=== PATIENT | female | born 1930 | race African-American/Black ===

== ENCOUNTER 2018-03-27 15:20 | Inpatient (IN) | payer MEDICARE, MEDICAID ==
[~2018-03-27] VITALS: Ht 162.6 cm; Wt 97.5 kg
[2018-03-27 16:30] LABS: BASOPHILS % 0.7 % (0.0-2.0); EOSINOPHILS % 0.3 % (0.0-5.0); HEMATOCRIT. 24.8 % (36.0-48.0); LYMPHOCYTES % 10.7 % (20.0-50.0); MEAN CORPUSCULAR HEMOGLOBIN 27.1 pg (28.0-32.0); MEAN CORPUSCULAR VOLUME 83.4 fL (81.0-99.0); MEAN PLATELET VOLUME 9.7 fl (7.4-10.4); MONOCYTES % 8.7 % (2.0-8.0); NEUTROPHILS % 79.6 % (40.0-76.0); PLATELET 187 x1000/uL (130-400); RED BLOOD CELL COUNT 2.97 mill/uL (4.2-5.4); RED CELL DISTRIBUTION WIDTH 17.9 % (11.6-14.6)
[2018-03-27 16:36] LABS: CHLORIDE 112 mEq/L (98-107)
[2018-03-28] VITALS (7 sets, daily range): BP systolic 111–146; BP diastolic 47–94
[2018-03-28] MEDS ORDERED: IPRATROPIUM/ALBUTEROL 0.5-3(2.5)MG/3ML NEB HHN PRN (08:00)
[2018-03-28] MEDS: ACETAMINOPHEN 650MG/20.3ML UDC PO PRN (08:54)
[2018-03-28] MEDS ORDERED: ACETAMINOPHEN 325MG TABLET PO PRN (09:00)
[2018-03-28] MEDS ORDERED: IPRATROPIUM/ALBUTEROL 0.5-3(2.5)MG/3ML NEB INH PRN (09:00)
[2018-03-28] MEDS ORDERED: DEXTROSE 50% WATER 50ML SYRINGE IV PRN (11:30)
[2018-03-28] MEDS: BLOOD SUGAR DIAGNOSTIC STRIP TEST SCH ×3 (12:30→21:00)
[2018-03-28] MEDS: PANTOPRAZOLE SODIUM 40 MG/VIAL IV SCH (12:40)
[2018-03-28] MEDS: HYDROCORTISONE 20MG TABLET PO SCH ×2 (12:41→21:13)
[2018-03-28] MEDS: INSULIN LISPRO 100 UNITS/ML SUBCUT SCH ×3 (13:00→21:00)
[2018-03-28 14:08] LABS: TOTAL IRON BINDING CAPACITY 298 ug/dL (250-450)
[2018-03-28] MEDS: SILDENAFIL CITRATE 20MG TABLET PO SCH ×2 (14:35→22:47)
[2018-03-28 16:05] LABS: BG BASE EXCESS -6.5 mmol/L (-2.0-2.0); BG CARBOXYHEMOGLOBIN 0.4 % (0.5-1.5); BG DEOXYHEMOGLOBIN 1.7 % (0.0-5.0); BG FRACTION INSPIRED OXYGEN 40; BG HCO3 ACT 18.1 mmol/L (22.0-26.0); BG METHEMOGLOBIN 0.3 % (0.0-1.5); BG OXYGEN SATURATION 98.3 % (92.0-98.5); BG OXYHEMOGLOBIN 97.6 % (94.0-97.0); BG PCO2 32.2 mmHg (35.0-45.0); BG PH 7.367 (7.350-7.450); BG PO2 135.7 mmHg (75.0-100.0); BG PRESSURE SUPPORT 14; BG SAMPLE SITE LEFT BRACHIAL; BG TIDAL VOLUME(mL) 500 mL; BG TOTAL HEMOGLOBIN 8.4 g/dL (12.0-18.0); BG VENT MODE VENT - SIMV; BG VENT RATE 4 set
[2018-03-28] MEDS ORDERED: DEXT 5%/0.45% NACL 1000ML 1,000 ML IV SCH (17:00)
[2018-03-28 18:53] LABS: TOTAL IRON BINDING CAPACITY 329 ug/dL (250-450)
[2018-03-28 19:32] LABS: BASOPHILS % 0.9 % (0.0-2.0); EOSINOPHILS % 1.2 % (0.0-5.0); HEMATOCRIT. 25.3 % (36.0-48.0); LYMPHOCYTES % 15.5 % (20.0-50.0); MEAN CORPUSCULAR HEMOGLOBIN 27.3 pg (28.0-32.0); MEAN CORPUSCULAR VOLUME 85.8 fL (81.0-99.0); MEAN PLATELET VOLUME 9.7 fl (7.4-10.4); MONOCYTES % 11.1 % (2.0-8.0); NEUTROPHILS % 71.3 % (40.0-76.0); PLATELET 185 x1000/uL (130-400); RED BLOOD CELL COUNT 2.95 mill/uL (4.2-5.4); RED CELL DISTRIBUTION WIDTH 17.6 % (11.6-14.6)
[2018-03-28] MEDS ORDERED: TERB2.5T2 PEG (20:15)
[2018-03-28] MEDS ORDERED: LOSA50TA20 GT (20:15)
[2018-03-28] MEDS ORDERED: BISA10SU62 RC (20:15)
[2018-03-28] MEDS ORDERED: NITR0.4T49 SL (20:15)
[2018-03-28] MEDS ORDERED: FERR220S12 GT (20:15)
[2018-03-28] MEDS ORDERED: XALAO EACHEYE (20:15)
[2018-03-28] MEDS ORDERED: FURO40TA5 PEG (20:15)
[2018-03-28] MEDS ORDERED: POTA20TA82 PEG (20:15)
[2018-03-28] MEDS ORDERED: HYDR10TA14 PEG (20:15)
[2018-03-28] MEDS ORDERED: SIME180C47 PEG (20:15)
[2018-03-28] MEDS ORDERED: OMEP40CA34 PEG (20:15)
[2018-03-28] MEDS ORDERED: CARV12.545 PEG (20:15)
[2018-03-28] MEDS ORDERED: LINA5TAB PEG (20:15)
[2018-03-28] MEDS ORDERED: SILD20TA PEG (20:15)
[2018-03-28] MEDS ORDERED: SPIR25TA6 PEG (20:15)
[2018-03-28] MEDS ORDERED: MOM PEG (20:15)
[2018-03-28] MEDS ORDERED: ACET650S25 GT (20:15)
[2018-03-28] MEDS ORDERED: OMEG100016 PEG (20:15)
[2018-03-28] MEDS ORDERED: NA P230E RC (20:15)
[2018-03-28] MEDS ORDERED: HYDR20TA3 PEG (20:15)
[2018-03-28] MEDS ORDERED: LACT1CAP68 PEG (20:15)
[2018-03-28] MEDS ORDERED: MULT-230 PEG (20:15)
[2018-03-28] MEDS: IPRATROPIUM/ALBUTEROL 0.5-3(2.5)MG/3ML NEB HHN SCH (20:39)
[2018-03-28] MEDS: IRON SUCROSE COMPLEX 100 MG/5 ML ML IV SCH (22:46)
[2018-03-29] VITALS (12 sets, daily range): BP systolic 89–130; BP diastolic 45–74
[2018-03-29] MEDS: IPRATROPIUM/ALBUTEROL 0.5-3(2.5)MG/3ML NEB HHN SCH ×4 (02:10→20:04)
[2018-03-29] MEDS: SILDENAFIL CITRATE 20MG TABLET PO SCH ×3 (06:29→22:00)
[2018-03-29 07:40] LABS: BASOPHILS % 0.7 % (0.0-2.0); EOSINOPHILS % 1.1 % (0.0-5.0); HEMATOCRIT. 24.3 % (36.0-48.0); HEMOGLOBIN. 7.8 g/dL (12.0-16.0); LYMPHOCYTES % 18.6 % (20.0-50.0); MEAN CORPUSCULAR HEMOGLOBIN 27.5 pg (28.0-32.0); MEAN CORPUSCULAR VOLUME 85.5 fL (81.0-99.0); MEAN PLATELET VOLUME 9.6 fl (7.4-10.4); MONOCYTES % 12.8 % (2.0-8.0); NEUTROPHILS % 66.8 % (40.0-76.0); PLATELET 162 x1000/uL (130-400); RED BLOOD CELL COUNT 2.84 mill/uL (4.2-5.4); RED CELL DISTRIBUTION WIDTH 17.7 % (11.6-14.6)
[2018-03-29] MEDS: INSULIN LISPRO 100 UNITS/ML SUBCUT SCH ×4 (08:00→21:00)
[2018-03-29] MEDS: BLOOD SUGAR DIAGNOSTIC STRIP TEST SCH ×4 (08:24→21:00)
[2018-03-29] MEDS: HYDROCORTISONE 20MG TABLET PO SCH ×2 (08:29→20:43)
[2018-03-29] MEDS: PANTOPRAZOLE SODIUM 40 MG/VIAL IV SCH (08:30)
[2018-03-29] MEDS ORDERED: SODIUM CHLORIDE 0.9% 500 ML IV NR (17:45)
[2018-03-29 19:36] LABS: HEMATOCRIT 23.7 % (36.0-48.0); HEMOGLOBIN 7.6 g/dL (12.0-16.0); MEAN CORPUSCULAR HEMOGLOBIN 27.7 pg (28.0-32.0); MEAN CORPUSCULAR VOLUME 86.4 fL (81.0-99.0); PLATELET 162 x1000/uL (130-400); RED BLOOD CELL COUNT 2.74 mill/uL (4.2-5.4); RED CELL DISTRIBUTION WIDTH 17.3 % (11.6-14.6)
[2018-03-29] MEDS: IRON SUCROSE COMPLEX 100 MG/5 ML ML IV SCH (20:43)
[2018-03-30] VITALS (12 sets, daily range): BP systolic 92–132; BP diastolic 35–86
[2018-03-30] MEDS: IPRATROPIUM/ALBUTEROL 0.5-3(2.5)MG/3ML NEB HHN SCH ×4 (02:22→20:35)
[2018-03-30] MEDS: SILDENAFIL CITRATE 20MG TABLET PO SCH ×3 (06:00→22:00)
[2018-03-30] MEDS: BLOOD SUGAR DIAGNOSTIC STRIP TEST SCH ×4 (07:30→21:00)
[2018-03-30] MEDS: INSULIN LISPRO 100 UNITS/ML SUBCUT SCH ×4 (08:00→21:00)
[2018-03-30 08:53] LABS: BASOPHILS % 0.9 % (0.0-2.0); HEMATOCRIT. 24.4 % (36.0-48.0); HEMOGLOBIN. 7.7 g/dL (12.0-16.0); MEAN CORPUSCULAR HEMOGLOBIN 27.9 pg (28.0-32.0); MEAN CORPUSCULAR VOLUME 87.9 fL (81.0-99.0); MEAN PLATELET VOLUME 9.6 fl (7.4-10.4); MONOCYTES % 12.2 % (2.0-8.0); NEUTROPHILS % 62.9 % (40.0-76.0); PLATELET 160 x1000/uL (130-400); RED BLOOD CELL COUNT 2.77 mill/uL (4.2-5.4); RED CELL DISTRIBUTION WIDTH 17.6 % (11.6-14.6)
[2018-03-30] MEDS: HYDROCORTISONE 20MG TABLET PO SCH ×2 (09:00→22:07)
[2018-03-30] MEDS: PANTOPRAZOLE SODIUM 40 MG/VIAL IV SCH (09:26)
[2018-03-30] MEDS: DEXTROSE 5% WATER 1,000 ML IV SCH (12:45)
[2018-03-30] MEDS ORDERED: STERILE WATER FOR INJECTION 10ML VIAL ONE (15:47)
[2018-03-30] MEDS ORDERED: MIDAZOLAM HCL 5 MG/5 ML VIAL ONE (16:28)
[2018-03-30] MEDS ORDERED: SIMETHICONE 40 MG/0.6 ML 30ML ONE (16:28)
[2018-03-30] MEDS ORDERED: FENTANYL CITRATE/PF 50MCG/ML 2ML VIAL ONE (16:29)
[2018-03-30] MEDS ORDERED: MIDAZOLAM HCL 5 MG/5 ML VIAL IV PRN (16:49)
[2018-03-30] MEDS: IRON SUCROSE COMPLEX 100 MG/5 ML ML IV SCH (20:00)
[2018-03-30] MEDS: ACETAMINOPHEN 650MG/20.3ML UDC PO PRN (22:06)
[2018-03-31] VITALS (34 sets, daily range): BP systolic 69–152; BP diastolic 33–98
[2018-03-31] MEDS: IPRATROPIUM/ALBUTEROL 0.5-3(2.5)MG/3ML NEB HHN SCH ×4 (02:02→20:41)
[2018-03-31] MEDS ORDERED: MORPHINE SULFATE 4 MG/ML CPJ (NOT FOR IM USE) IV PRN (05:45)
[2018-03-31] MEDS ORDERED: MORPHINE SULFATE 4 MG/ML CPJ (NOT FOR IM USE) IV SCH (05:45)
[2018-03-31] MEDS ORDERED: MAGNESIUM/ALUMINUM HYDROXIDE/SIMETHICONE 30ML UDC PO NR (06:00)
[2018-03-31] MEDS ORDERED: MAGNESIUM/ALUMINUM HYDROXIDE/SIMETHICONE 30ML UDC PO PRN (06:00)
[2018-03-31 06:45] LABS: BASOPHILS % 0.6 % (0.0-2.0); EOSINOPHILS % 0.8 % (0.0-5.0); HEMATOCRIT. 25.1 % (36.0-48.0); LYMPHOCYTES % 11.2 % (20.0-50.0); MEAN CORPUSCULAR HEMOGLOBIN 27.9 pg (28.0-32.0); MEAN CORPUSCULAR VOLUME 87.4 fL (81.0-99.0); MEAN PLATELET VOLUME 9.6 fl (7.4-10.4); MONOCYTES % 11.8 % (2.0-8.0); NEUTROPHILS % 75.6 % (40.0-76.0); PLATELET 153 x1000/uL (130-400); RED BLOOD CELL COUNT 2.87 mill/uL (4.2-5.4); RED CELL DISTRIBUTION WIDTH 17.9 % (11.6-14.6)
[2018-03-31] MEDS: SILDENAFIL CITRATE 20MG TABLET PO SCH ×3 (06:48→21:34)
[2018-03-31] MEDS: BLOOD SUGAR DIAGNOSTIC STRIP TEST SCH ×4 (07:02→21:34)
[2018-03-31] MEDS: INSULIN LISPRO 100 UNITS/ML SUBCUT SCH ×4 (07:50→21:00)
[2018-03-31] MEDS: DEXTROSE 5% WATER 1,000 ML IV SCH (08:04)
[2018-03-31] MEDS: PANTOPRAZOLE SODIUM 40 MG/VIAL IV SCH (09:15)
[2018-03-31] MEDS: HYDROCORTISONE 20MG TABLET PO SCH ×2 (09:15→21:34)
[2018-04-01] VITALS (14 sets, daily range): BP systolic 83–128; BP diastolic 23–73
[2018-04-01] MEDS: IPRATROPIUM/ALBUTEROL 0.5-3(2.5)MG/3ML NEB HHN SCH ×4 (04:03→21:13)
[2018-04-01] MEDS: SILDENAFIL CITRATE 20MG TABLET PO SCH ×3 (06:00→21:39)
[2018-04-01 06:48] LABS: BASOPHILS % 0.6 % (0.0-2.0); EOSINOPHILS % 1.5 % (0.0-5.0); HEMATOCRIT. 21.9 % (36.0-48.0); HEMOGLOBIN. 7.1 g/dL (12.0-16.0); LYMPHOCYTES % 9.4 % (20.0-50.0); MEAN CORPUSCULAR HEMOGLOBIN 27.9 pg (28.0-32.0); MEAN CORPUSCULAR VOLUME 86.4 fL (81.0-99.0); MEAN PLATELET VOLUME 9.5 fl (7.4-10.4); MONOCYTES % 8.7 % (2.0-8.0); NEUTROPHILS % 79.8 % (40.0-76.0); PLATELET 144 x1000/uL (130-400); RED BLOOD CELL COUNT 2.53 mill/uL (4.2-5.4)
[2018-04-01 06:54] LABS: CHLORIDE 114 mEq/L (98-107)
[2018-04-01] MEDS: BLOOD SUGAR DIAGNOSTIC STRIP TEST SCH ×3 (07:53→17:27)
[2018-04-01] MEDS: INSULIN LISPRO 100 UNITS/ML SUBCUT SCH ×3 (07:53→17:27)
[2018-04-01] MEDS: PANTOPRAZOLE SODIUM 40 MG/VIAL IV SCH (08:55)
[2018-04-01] MEDS: HYDROCORTISONE 20MG TABLET PO SCH ×2 (08:55→21:39)
[2018-04-01] MEDS ORDERED: LIDOCAINE HCL 1% 20ML VIAL (Pyxis) INJ ONE (09:47)
[2018-04-01] MEDS: DOCUSATE SODIUM SUGAR FREE 100MG/10ML UDC NG SCH ×2 (13:01→17:47)
[2018-04-01] MEDS: FUROSEMIDE 40MG/4ML VIAL IVP SCH (13:01)
[2018-04-01] MEDS: ACETYLCYSTEINE 200MG/ML 20% VIAL 4ML INH SCH (16:37)
[2018-04-01 20:09] LABS: HEMATOCRIT 24.5 % (36.0-48.0); HEMOGLOBIN 7.7 g/dL (12.0-16.0); MEAN CORPUSCULAR VOLUME 88.7 fL (81.0-99.0); PLATELET 142 x1000/uL (130-400); RED BLOOD CELL COUNT 2.76 mill/uL (4.2-5.4); RED CELL DISTRIBUTION WIDTH 18.6 % (11.6-14.6)
[2018-04-01] MEDS: DEXTROSE 5% WATER 1,000 ML IV SCH (21:39)
[2018-04-02] VITALS (12 sets, daily range): BP systolic 84–117; BP diastolic 46–94
[2018-04-02] MEDS: IPRATROPIUM/ALBUTEROL 0.5-3(2.5)MG/3ML NEB HHN SCH ×7 (01:24→23:44)
[2018-04-02] MEDS: ACETYLCYSTEINE 200MG/ML 20% VIAL 4ML INH SCH ×4 (01:25→20:45)
[2018-04-02 05:23] LABS: HEMATOCRIT. 22.7 % (36.0-48.0); HEMOGLOBIN. 7.5 g/dL (12.0-16.0); MEAN CORPUSCULAR HEMOGLOBIN 28.2 pg (28.0-32.0); MEAN CORPUSCULAR VOLUME 85.8 fL (81.0-99.0); MEAN PLATELET VOLUME 9.5 fl (7.4-10.4); PLATELET 135 x1000/uL (130-400); RED BLOOD CELL COUNT 2.65 mill/uL (4.2-5.4); RED CELL DISTRIBUTION WIDTH 17.6 % (11.6-14.6)
[2018-04-02 05:53] LABS: CHLORIDE 110 mEq/L (98-107)
[2018-04-02] MEDS: SILDENAFIL CITRATE 20MG TABLET PO SCH ×3 (06:00→21:43)
[2018-04-02] MEDS: BLOOD SUGAR DIAGNOSTIC STRIP TEST SCH ×4 (06:00→17:13)
[2018-04-02] MEDS: INSULIN LISPRO 100 UNITS/ML SUBCUT SCH ×5 (08:00→23:52)
[2018-04-02] MEDS: DOCUSATE SODIUM SUGAR FREE 100MG/10ML UDC NG SCH ×2 (09:00→17:17)
[2018-04-02] MEDS: FUROSEMIDE 40MG/4ML VIAL IVP SCH (09:00)
[2018-04-02] MEDS: HYDROCORTISONE 20MG TABLET PO SCH ×2 (09:01→21:43)
[2018-04-02] MEDS: PANTOPRAZOLE SODIUM 40 MG/VIAL IV SCH (09:01)
[2018-04-02 11:55] LABS: PLATELET ESTIMATE NORMAL
[2018-04-02] MEDS: DEXTROSE 5% WATER 1,000 ML IV SCH (12:03)
[2018-04-02] MEDS ORDERED: ASPIRIN 81MG EC TABLET PO NR (15:30)
[2018-04-02] MEDS ORDERED: ASPIRIN 81MG TABLET GT NR (16:15)
[2018-04-03] VITALS (12 sets, daily range): BP systolic 88–154; BP diastolic 41–74
[2018-04-03] MEDS: ACETYLCYSTEINE 200MG/ML 20% VIAL 4ML INH SCH ×2 (00:45→09:10)
[2018-04-03] MEDS: IPRATROPIUM/ALBUTEROL 0.5-3(2.5)MG/3ML NEB HHN SCH ×5 (03:40→20:22)
[2018-04-03] MEDS: SILDENAFIL CITRATE 20MG TABLET PO SCH ×3 (06:00→22:00)
[2018-04-03 06:19] LABS: BASOPHILS % 0.5 % (0.0-2.0); EOSINOPHILS % 1.2 % (0.0-5.0); HEMATOCRIT. 22.9 % (36.0-48.0); HEMOGLOBIN. 7.4 g/dL (12.0-16.0); LYMPHOCYTES % 10.1 % (20.0-50.0); MEAN CORPUSCULAR HEMOGLOBIN 27.9 pg (28.0-32.0); MEAN CORPUSCULAR VOLUME 86.2 fL (81.0-99.0); MEAN PLATELET VOLUME 9.4 fl (7.4-10.4); MONOCYTES % 9.2 % (2.0-8.0); PLATELET 120 x1000/uL (130-400); RED BLOOD CELL COUNT 2.65 mill/uL (4.2-5.4); RED CELL DISTRIBUTION WIDTH 18.3 % (11.6-14.6)
[2018-04-03 06:32] LABS: CHLORIDE 109 mEq/L (98-107)
[2018-04-03] MEDS: INSULIN LISPRO 100 UNITS/ML SUBCUT SCH ×3 (06:40→17:51)
[2018-04-03] MEDS: BLOOD SUGAR DIAGNOSTIC STRIP TEST SCH ×4 (06:40→17:20)
[2018-04-03 06:41] LABS: CREATINE KINASE 86 IU/L (26-192)
[2018-04-03 06:43] LABS: CREATINE KINASE MB FRACTION 7.9 ng/mL (0.5-3.6)
[2018-04-03] MEDS: DOCUSATE SODIUM SUGAR FREE 100MG/10ML UDC NG SCH ×2 (08:43→17:25)
[2018-04-03] MEDS: HYDROCORTISONE 20MG TABLET PO SCH ×2 (08:43→22:08)
[2018-04-03] MEDS: PANTOPRAZOLE SODIUM 40 MG/VIAL IV SCH (08:43)
[2018-04-03] MEDS: FUROSEMIDE 40MG/4ML VIAL IVP SCH (08:44)
[2018-04-03] MEDS: DEXTROSE 5% WATER 1,000 ML IV SCH (13:20)
[2018-04-03] MEDS: ACETAMINOPHEN 650MG/20.3ML UDC PO PRN (17:25)
[2018-04-04] VITALS (17 sets, daily range): BP systolic 78–138; BP diastolic 47–91
[2018-04-04] MEDS: BLOOD SUGAR DIAGNOSTIC STRIP TEST SCH ×4 (00:29→17:57)
[2018-04-04] MEDS: INSULIN LISPRO 100 UNITS/ML SUBCUT SCH ×4 (00:29→18:31)
[2018-04-04] MEDS: ACETYLCYSTEINE 200MG/ML 20% VIAL 4ML INH SCH ×3 (00:45→15:43)
[2018-04-04] MEDS: IPRATROPIUM/ALBUTEROL 0.5-3(2.5)MG/3ML NEB HHN SCH ×6 (00:46→20:15)
[2018-04-04] MEDS: SILDENAFIL CITRATE 20MG TABLET PO SCH ×3 (06:00→22:00)
[2018-04-04 06:37] LABS: BASOPHILS % 0.7 % (0.0-2.0); EOSINOPHILS % 1.4 % (0.0-5.0); LYMPHOCYTES % 10.3 % (20.0-50.0); MEAN CORPUSCULAR HEMOGLOBIN 28.5 pg (28.0-32.0); MEAN PLATELET VOLUME 10.1 fl (7.4-10.4); MONOCYTES % 11.2 % (2.0-8.0); NEUTROPHILS % 76.4 % (40.0-76.0); PLATELET 119 x1000/uL (130-400); RED BLOOD CELL COUNT 2.46 mill/uL (4.2-5.4); RED CELL DISTRIBUTION WIDTH 18.4 % (11.6-14.6)
[2018-04-04 07:00] LABS: HEMATOCRIT. 21.1 % (36.0-48.0)
[2018-04-04 07:31] LABS: CHLORIDE 109 mEq/L (98-107)
[2018-04-04] MEDS: FUROSEMIDE 40MG/4ML VIAL IVP SCH (08:22)
[2018-04-04] MEDS: PANTOPRAZOLE SODIUM 40 MG/VIAL IV SCH (08:28)
[2018-04-04] MEDS: HYDROCORTISONE 20MG TABLET PO SCH ×2 (08:29→21:46)
[2018-04-04] MEDS: DOCUSATE SODIUM SUGAR FREE 100MG/10ML UDC NG SCH ×2 (08:29→18:30)
[2018-04-04] MEDS ORDERED: FUROSEMIDE 20MG/2ML VIAL IVP NR (17:15)
[2018-04-04] MEDS: SORBITOL 70% SOLN 30ML GT PRN (21:46)
[2018-04-05] VITALS (12 sets, daily range): BP systolic 90–109; BP diastolic 49–64
[2018-04-05] MEDS: IPRATROPIUM/ALBUTEROL 0.5-3(2.5)MG/3ML NEB HHN SCH ×6 (00:06→20:51)
[2018-04-05] MEDS: BLOOD SUGAR DIAGNOSTIC STRIP TEST SCH ×4 (00:46→17:16)
[2018-04-05] MEDS: INSULIN LISPRO 100 UNITS/ML SUBCUT SCH ×4 (00:46→17:16)
[2018-04-05] MEDS: SILDENAFIL CITRATE 20MG TABLET PO SCH ×3 (06:00→21:51)
[2018-04-05 06:23] LABS: BASOPHILS % 0.7 % (0.0-2.0); HEMATOCRIT. 25.2 % (36.0-48.0); HEMOGLOBIN. 8.4 g/dL (12.0-16.0); LYMPHOCYTES % 9.4 % (20.0-50.0); MEAN CORPUSCULAR HEMOGLOBIN 28.4 pg (28.0-32.0); MEAN CORPUSCULAR VOLUME 85.6 fL (81.0-99.0); MEAN PLATELET VOLUME 9.9 fl (7.4-10.4); MONOCYTES % 10.2 % (2.0-8.0); NEUTROPHILS % 78.7 % (40.0-76.0); PLATELET 128 x1000/uL (130-400); RED BLOOD CELL COUNT 2.94 mill/uL (4.2-5.4); RED CELL DISTRIBUTION WIDTH 18.3 % (11.6-14.6)
[2018-04-05 08:05] LABS: CHLORIDE 106 mEq/L (98-107)
[2018-04-05] MEDS: ACETYLCYSTEINE 100MG/ML 10% VIAL 4ML INH SCH ×2 (08:30→16:05)
[2018-04-05] MEDS: PANTOPRAZOLE SODIUM 40 MG/VIAL IV SCH (09:18)
[2018-04-05] MEDS: FUROSEMIDE 40MG/4ML VIAL IVP SCH (09:19)
[2018-04-05] MEDS: DOCUSATE SODIUM SUGAR FREE 100MG/10ML UDC NG SCH ×2 (09:19→17:16)
[2018-04-05] MEDS: HYDROCORTISONE 20MG TABLET PO SCH ×2 (09:19→21:51)
[2018-04-05 17:36] LABS: CLARITY URINE CLEAR (CLEAR); COLOR URINE YELLOW (YELLOW); KETONES URINE NEGATIVE (NEGATIVE); LEUKOCYTE ESTERASE URINE 2+ (NEGATIVE); NITRITE URINE NEGATIVE (NEGATIVE); OCCULT BLOOD URINE NEGATIVE (NEGATIVE); PH URINE 5.5 (4.5-8.0); PROTEIN URINE NEGATIVE (NEGATIVE); SPECIFIC GRAVITY URINE 1.008 (1.005-1.030); UROBILINOGEN URINE 0.2 E.U./dL (0.2-1.0)
[2018-04-06] VITALS (12 sets, daily range): BP systolic 89–112; BP diastolic 45–79
[2018-04-06] MEDS: ACETYLCYSTEINE 100MG/ML 10% VIAL 4ML INH SCH ×3 (00:41→16:11)
[2018-04-06] MEDS: IPRATROPIUM/ALBUTEROL 0.5-3(2.5)MG/3ML NEB HHN SCH ×6 (00:42→20:42)
[2018-04-06] MEDS: INSULIN LISPRO 100 UNITS/ML SUBCUT SCH ×4 (01:14→17:35)
[2018-04-06] MEDS: BLOOD SUGAR DIAGNOSTIC STRIP TEST SCH ×4 (01:14→17:04)
[2018-04-06] MEDS: SILDENAFIL CITRATE 20MG TABLET PO SCH ×3 (06:25→21:38)
[2018-04-06] MEDS: PANTOPRAZOLE SODIUM 40 MG/VIAL IV SCH (10:22)
[2018-04-06] MEDS: FUROSEMIDE 40MG TABLET PO SCH (10:22)
[2018-04-06] MEDS: HYDROCORTISONE 20MG TABLET PO SCH ×2 (10:22→21:33)
[2018-04-06] MEDS: DOCUSATE SODIUM SUGAR FREE 100MG/10ML UDC NG SCH ×2 (10:23→17:04)
[2018-04-07] VITALS (12 sets, daily range): BP systolic 84–105; BP diastolic 22–69
[2018-04-07] MEDS: ACETYLCYSTEINE 100MG/ML 10% VIAL 4ML INH SCH (00:22)
[2018-04-07] MEDS: IPRATROPIUM/ALBUTEROL 0.5-3(2.5)MG/3ML NEB HHN SCH ×6 (00:27→20:29)
[2018-04-07] MEDS: SILDENAFIL CITRATE 20MG TABLET PO SCH ×3 (06:00→22:00)
[2018-04-07] MEDS: BLOOD SUGAR DIAGNOSTIC STRIP TEST SCH ×4 (06:00→18:40)
[2018-04-07] MEDS: INSULIN LISPRO 100 UNITS/ML SUBCUT SCH ×4 (06:46→18:40)
[2018-04-07] MEDS: DOCUSATE SODIUM SUGAR FREE 100MG/10ML UDC NG SCH ×2 (09:00→16:21)
[2018-04-07] MEDS: HYDROCORTISONE 20MG TABLET PO SCH ×2 (10:15→20:58)
[2018-04-07] MEDS: FUROSEMIDE 40MG TABLET PO SCH (10:15)
[2018-04-07] MEDS: ACETAMINOPHEN 650MG/20.3ML UDC PO PRN (16:20)
[2018-04-07] MEDS: PANTOPRAZOLE SODIUM 40 MG/VIAL IV SCH (16:21)
[2018-04-08] VITALS (12 sets, daily range): BP systolic 80–119; BP diastolic 39–69
[2018-04-08] MEDS: IPRATROPIUM/ALBUTEROL 0.5-3(2.5)MG/3ML NEB HHN SCH ×6 (00:34→20:53)
[2018-04-08 01:13] LABS: BASOPHILS % 0.8 % (0.0-2.0); HEMATOCRIT. 25.2 % (36.0-48.0); HEMOGLOBIN. 8.4 g/dL (12.0-16.0); LYMPHOCYTES % 11.6 % (20.0-50.0); MEAN CORPUSCULAR HEMOGLOBIN 28.5 pg (28.0-32.0); MEAN CORPUSCULAR VOLUME 85.5 fL (81.0-99.0); MEAN PLATELET VOLUME 9.9 fl (7.4-10.4); MONOCYTES % 11.2 % (2.0-8.0); NEUTROPHILS % 75.4 % (40.0-76.0); PLATELET 139 x1000/uL (130-400); RED BLOOD CELL COUNT 2.94 mill/uL (4.2-5.4)
[2018-04-08] MEDS: BLOOD SUGAR DIAGNOSTIC STRIP TEST SCH ×4 (06:00→17:55)
[2018-04-08] MEDS: SILDENAFIL CITRATE 20MG TABLET PO SCH ×3 (06:00→22:00)
[2018-04-08] MEDS: INSULIN LISPRO 100 UNITS/ML SUBCUT SCH ×4 (06:00→17:56)
[2018-04-08] MEDS: FUROSEMIDE 40MG TABLET PO SCH (08:55)
[2018-04-08] MEDS: DOCUSATE SODIUM SUGAR FREE 100MG/10ML UDC NG SCH ×2 (08:55→17:56)
[2018-04-08] MEDS: HYDROCORTISONE 20MG TABLET PO SCH ×2 (08:55→22:11)
[2018-04-08] MEDS: PANTOPRAZOLE SODIUM 40 MG/VIAL IV SCH (08:55)
[2018-04-08] MEDS: ACETAMINOPHEN 650MG/20.3ML UDC PO PRN (17:57)
[2018-04-08] MEDS: INSULIN GLARGINE UD 100 UNITS/ML SYR SUBCUT SCH (22:42)
[2018-04-09] VITALS (15 sets, daily range): BP systolic 87–139; BP diastolic 41–90
[2018-04-09] MEDS: IPRATROPIUM/ALBUTEROL 0.5-3(2.5)MG/3ML NEB HHN SCH ×6 (00:23→19:52)
[2018-04-09 05:47] LABS: HEMATOCRIT 24.4 % (36.0-48.0); HEMOGLOBIN 8.2 g/dL (12.0-16.0); MEAN CORPUSCULAR HEMOGLOBIN 28.7 pg (28.0-32.0); MEAN CORPUSCULAR VOLUME 85.2 fL (81.0-99.0); PLATELET 149 x1000/uL (130-400); RED BLOOD CELL COUNT 2.87 mill/uL (4.2-5.4)
[2018-04-09 05:52] LABS: PARTIAL THROMBOPLASTIN TIME 23.8 sec (23.4-31.0); PROTHROMBIN TIME 10.1 sec (9.1-11.1)
[2018-04-09] MEDS: BLOOD SUGAR DIAGNOSTIC STRIP TEST SCH ×4 (06:00→17:26)
[2018-04-09] MEDS: SILDENAFIL CITRATE 20MG TABLET PO SCH ×3 (06:00→21:35)
[2018-04-09] MEDS: INSULIN LISPRO 100 UNITS/ML SUBCUT SCH ×4 (06:29→17:26)
[2018-04-09] MEDS: FUROSEMIDE 40MG TABLET PO SCH (08:55)
[2018-04-09] MEDS: PANTOPRAZOLE SODIUM 40 MG/VIAL IV SCH (08:55)
[2018-04-09] MEDS: DOCUSATE SODIUM SUGAR FREE 100MG/10ML UDC NG SCH ×2 (08:55→17:55)
[2018-04-09] MEDS: HYDROCORTISONE 20MG TABLET PO SCH ×2 (08:55→21:35)
[2018-04-09] MEDS: INSULIN GLARGINE UD 100 UNITS/ML SYR SUBCUT SCH (22:01)
[2018-04-10] VITALS (15 sets, daily range): BP systolic 75–104; BP diastolic 42–57
[2018-04-10] MEDS: BLOOD SUGAR DIAGNOSTIC STRIP TEST SCH ×4 (00:30→17:39)
[2018-04-10] MEDS: IPRATROPIUM/ALBUTEROL 0.5-3(2.5)MG/3ML NEB HHN SCH ×6 (00:30→20:49)
[2018-04-10] MEDS: SILDENAFIL CITRATE 20MG TABLET PO SCH ×3 (06:00→21:02)
[2018-04-10] MEDS: INSULIN LISPRO 100 UNITS/ML SUBCUT SCH ×4 (06:18→17:54)
[2018-04-10] MEDS: HYDROCORTISONE 20MG TABLET PO SCH ×2 (08:50→21:02)
[2018-04-10] MEDS: DOCUSATE SODIUM SUGAR FREE 100MG/10ML UDC NG SCH ×2 (08:50→17:54)
[2018-04-10] MEDS: PANTOPRAZOLE SODIUM 40 MG/VIAL IV SCH (08:50)
[2018-04-10] MEDS: FUROSEMIDE 40MG TABLET PO SCH (08:50)
[2018-04-10] MEDS: INSULIN GLARGINE UD 100 UNITS/ML SYR SUBCUT SCH (22:29)
[2018-04-11] VITALS (12 sets, daily range): BP systolic 82–111; BP diastolic 46–66
[2018-04-11] MEDS: IPRATROPIUM/ALBUTEROL 0.5-3(2.5)MG/3ML NEB HHN SCH ×5 (00:25→20:18)
[2018-04-11] MEDS: BLOOD SUGAR DIAGNOSTIC STRIP TEST SCH ×5 (00:29→23:23)
[2018-04-11] MEDS: INSULIN LISPRO 100 UNITS/ML SUBCUT SCH ×5 (00:36→23:23)
[2018-04-11] MEDS: FUROSEMIDE 40MG TABLET PO SCH (09:33)
[2018-04-11] MEDS: PANTOPRAZOLE SODIUM 40 MG/VIAL IV SCH (09:33)
[2018-04-11] MEDS: HYDROCORTISONE 20MG TABLET PO SCH ×2 (09:33→21:31)
[2018-04-11] MEDS: DOCUSATE SODIUM SUGAR FREE 100MG/10ML UDC NG SCH ×2 (09:34→18:26)
[2018-04-11] MEDS: SILDENAFIL CITRATE 20MG TABLET PO SCH ×2 (13:15→22:00)
[2018-04-11 16:54] LABS: BASOPHILS % 0.7 % (0.0-2.0); EOSINOPHILS % 0.9 % (0.0-5.0); LYMPHOCYTES % 10.5 % (20.0-50.0); MEAN CORPUSCULAR HEMOGLOBIN 28.5 pg (28.0-32.0); MEAN CORPUSCULAR VOLUME 85.5 fL (81.0-99.0); MEAN PLATELET VOLUME 9.7 fl (7.4-10.4); MONOCYTES % 8.9 % (2.0-8.0); PLATELET 189 x1000/uL (130-400); RED BLOOD CELL COUNT 3.15 mill/uL (4.2-5.4); RED CELL DISTRIBUTION WIDTH 17.5 % (11.6-14.6)
[2018-04-11] MEDS: SORBITOL 70% SOLN 30ML GT PRN (21:31)
[2018-04-11] MEDS: INSULIN GLARGINE UD 100 UNITS/ML SYR SUBCUT SCH (23:23)
[2018-04-12] VITALS (12 sets, daily range): BP systolic 76–120; BP diastolic 41–92
[2018-04-12] MEDS: IPRATROPIUM/ALBUTEROL 0.5-3(2.5)MG/3ML NEB HHN SCH ×5 (01:13→20:51)
[2018-04-12] MEDS: SILDENAFIL CITRATE 20MG TABLET PO SCH ×3 (06:00→21:28)
[2018-04-12] MEDS: INSULIN LISPRO 100 UNITS/ML SUBCUT SCH ×3 (06:00→18:53)
[2018-04-12] MEDS: BLOOD SUGAR DIAGNOSTIC STRIP TEST SCH ×3 (06:40→18:16)
[2018-04-12 07:31] LABS: BASOPHILS % 0.5 % (0.0-2.0); EOSINOPHILS % 1.4 % (0.0-5.0); HEMATOCRIT. 26.2 % (36.0-48.0); HEMOGLOBIN. 8.7 g/dL (12.0-16.0); LYMPHOCYTES % 9.8 % (20.0-50.0); MEAN CORPUSCULAR HEMOGLOBIN 28.7 pg (28.0-32.0); MEAN CORPUSCULAR VOLUME 85.8 fL (81.0-99.0); MEAN PLATELET VOLUME 9.8 fl (7.4-10.4); NEUTROPHILS % 78.3 % (40.0-76.0); PLATELET 182 x1000/uL (130-400); RED BLOOD CELL COUNT 3.05 mill/uL (4.2-5.4); RED CELL DISTRIBUTION WIDTH 17.7 % (11.6-14.6)
[2018-04-12 07:33] LABS: CHLORIDE 103 mEq/L (98-107)
[2018-04-12 07:46] LABS: TOTAL IRON BINDING CAPACITY 317 ug/dL (250-450)
[2018-04-12] MEDS: FUROSEMIDE 40MG TABLET PO SCH (09:21)
[2018-04-12] MEDS: HYDROCORTISONE 20MG TABLET PO SCH ×2 (09:21→21:28)
[2018-04-12] MEDS: PANTOPRAZOLE SODIUM 40 MG/VIAL IV SCH ×2 (09:22→21:27)
[2018-04-12] MEDS: DOCUSATE SODIUM SUGAR FREE 100MG/10ML UDC NG SCH ×2 (09:22→18:17)
[2018-04-12] MEDS: INSULIN GLARGINE UD 100 UNITS/ML SYR SUBCUT SCH (21:37)
[2018-04-13] VITALS (15 sets, daily range): BP systolic 73–117; BP diastolic 30–76
[2018-04-13] MEDS: BLOOD SUGAR DIAGNOSTIC STRIP TEST SCH ×4 (00:35→17:50)
[2018-04-13] MEDS: INSULIN LISPRO 100 UNITS/ML SUBCUT SCH ×4 (00:35→17:50)
[2018-04-13] MEDS: IPRATROPIUM/ALBUTEROL 0.5-3(2.5)MG/3ML NEB HHN SCH ×7 (00:43→21:26)
[2018-04-13 06:08] LABS: HEMATOCRIT 25.1 % (36.0-48.0); HEMOGLOBIN 8.3 g/dL (12.0-16.0); MEAN CORPUSCULAR HEMOGLOBIN 28.3 pg (28.0-32.0); PLATELET 195 x1000/uL (130-400); RED BLOOD CELL COUNT 2.92 mill/uL (4.2-5.4); RED CELL DISTRIBUTION WIDTH 17.2 % (11.6-14.6)
[2018-04-13] MEDS: SILDENAFIL CITRATE 20MG TABLET PO SCH ×3 (07:05→22:00)
[2018-04-13] MEDS: PANTOPRAZOLE SODIUM 40 MG/VIAL IV SCH ×2 (08:56→22:05)
[2018-04-13] MEDS: HYDROCORTISONE 20MG TABLET PO SCH ×2 (08:56→22:05)
[2018-04-13] MEDS: DOCUSATE SODIUM SUGAR FREE 100MG/10ML UDC NG SCH ×2 (08:56→17:50)
[2018-04-13] MEDS: FUROSEMIDE 40MG TABLET PO SCH (08:56)
[2018-04-13] MEDS: FERROUS SULFATE 325MG TABLET PO SCH (17:50)
[2018-04-13] MEDS: INSULIN GLARGINE UD 100 UNITS/ML SYR SUBCUT SCH (22:07)
[2018-04-14] VITALS (13 sets, daily range): BP systolic 75–110; BP diastolic 35–59
[2018-04-14] MEDS: BLOOD SUGAR DIAGNOSTIC STRIP TEST SCH ×4 (00:53→17:09)
[2018-04-14] MEDS: IPRATROPIUM/ALBUTEROL 0.5-3(2.5)MG/3ML NEB HHN SCH ×7 (01:20→21:25)
[2018-04-14] MEDS: INSULIN LISPRO 100 UNITS/ML SUBCUT SCH ×4 (06:00→17:31)
[2018-04-14] MEDS: SILDENAFIL CITRATE 20MG TABLET PO SCH ×3 (06:00→21:01)
[2018-04-14 07:53] LABS: BASOPHILS % 1.2 % (0.0-2.0); EOSINOPHILS % 2.4 % (0.0-5.0); HEMATOCRIT. 26.7 % (36.0-48.0); HEMOGLOBIN. 8.9 g/dL (12.0-16.0); MEAN CORPUSCULAR HEMOGLOBIN 28.4 pg (28.0-32.0); MEAN CORPUSCULAR VOLUME 85.4 fL (81.0-99.0); MEAN PLATELET VOLUME 9.9 fl (7.4-10.4); MONOCYTES % 10.9 % (2.0-8.0); NEUTROPHILS % 67.5 % (40.0-76.0); PHOSPHORUS 2.1 mg/dL (2.5-4.9); PLATELET 194 x1000/uL (130-400); RED BLOOD CELL COUNT 3.12 mill/uL (4.2-5.4); RED CELL DISTRIBUTION WIDTH 17.2 % (11.6-14.6)
[2018-04-14] MEDS: PANTOPRAZOLE SODIUM 40 MG/VIAL IV SCH ×2 (08:22→20:57)
[2018-04-14] MEDS: DOCUSATE SODIUM SUGAR FREE 100MG/10ML UDC NG SCH ×2 (08:23→17:00)
[2018-04-14] MEDS: HYDROCORTISONE 20MG TABLET PO SCH ×2 (08:23→20:57)
[2018-04-14] MEDS: FUROSEMIDE 40MG TABLET PO SCH (08:23)
[2018-04-14] MEDS: FERROUS SULFATE 325MG TABLET PO SCH ×3 (08:23→17:22)
[2018-04-14] MEDS: POTASSIUM CHLORIDE 20MEQ/PACKET GT SCH ×2 (13:31→17:22)
[2018-04-14] MEDS ORDERED: POTASSIUM PHOS,M-BASIC-D-BASIC 20 MMOL in DEXT 5% WATER 243.3333 ML IV NR (14:30)
[2018-04-14] MEDS: PSYLLIUM SEED PACKET PO SCH ×2 (16:01→20:57)
[2018-04-14] MEDS: INSULIN GLARGINE UD 100 UNITS/ML SYR SUBCUT SCH (21:52)
[2018-04-15] VITALS (12 sets, daily range): BP systolic 78–108; BP diastolic 36–61
[2018-04-15] MEDS: BLOOD SUGAR DIAGNOSTIC STRIP TEST SCH ×4 (00:01→17:03)
[2018-04-15] MEDS: INSULIN LISPRO 100 UNITS/ML SUBCUT SCH ×4 (00:02→17:05)
[2018-04-15] MEDS: IPRATROPIUM/ALBUTEROL 0.5-3(2.5)MG/3ML NEB HHN SCH ×5 (00:53→20:11)
[2018-04-15] MEDS: SILDENAFIL CITRATE 20MG TABLET PO SCH ×3 (05:57→21:58)
[2018-04-15 06:01] LABS: BASOPHILS % 0.5 % (0.0-2.0); EOSINOPHILS % 2.2 % (0.0-5.0); HEMATOCRIT. 25.6 % (36.0-48.0); HEMOGLOBIN. 8.4 g/dL (12.0-16.0); LYMPHOCYTES % 12.4 % (20.0-50.0); MEAN CORPUSCULAR HEMOGLOBIN 28.3 pg (28.0-32.0); MEAN CORPUSCULAR VOLUME 85.8 fL (81.0-99.0); MEAN PLATELET VOLUME 9.9 fl (7.4-10.4); MONOCYTES % 10.3 % (2.0-8.0); NEUTROPHILS % 74.6 % (40.0-76.0); PLATELET 185 x1000/uL (130-400); RED BLOOD CELL COUNT 2.98 mill/uL (4.2-5.4); RED CELL DISTRIBUTION WIDTH 17.3 % (11.6-14.6)
[2018-04-15 06:20] LABS: PHOSPHORUS 4.1 mg/dL (2.5-4.9)
[2018-04-15] MEDS: POTASSIUM CHLORIDE 20MEQ/PACKET GT SCH ×3 (08:13→17:05)
[2018-04-15] MEDS: FUROSEMIDE 20MG TABLET PO SCH (08:14)
[2018-04-15] MEDS: PANTOPRAZOLE SODIUM 40 MG/VIAL IV SCH ×2 (08:14→21:57)
[2018-04-15] MEDS: FERROUS SULFATE 325MG TABLET PO SCH ×3 (08:14→17:06)
[2018-04-15] MEDS: HYDROCORTISONE 20MG TABLET PO SCH ×2 (08:14→21:57)
[2018-04-15] MEDS: PSYLLIUM SEED PACKET PO SCH ×3 (08:46→17:06)
[2018-04-15] MEDS: DOCUSATE SODIUM SUGAR FREE 100MG/10ML UDC NG SCH ×2 (09:00→17:05)
[2018-04-15] MEDS: INSULIN GLARGINE UD 100 UNITS/ML SYR SUBCUT SCH (21:59)
[2018-04-16] VITALS (12 sets, daily range): BP systolic 78–105; BP diastolic 45–69
[2018-04-16] MEDS: IPRATROPIUM/ALBUTEROL 0.5-3(2.5)MG/3ML NEB HHN SCH ×6 (00:33→20:43)
[2018-04-16] MEDS: INSULIN LISPRO 100 UNITS/ML SUBCUT SCH ×5 (01:31→23:54)
[2018-04-16] MEDS: SILDENAFIL CITRATE 20MG TABLET PO SCH ×3 (06:00→22:00)
[2018-04-16 06:33] LABS: HEMATOCRIT 28.3 % (36.0-48.0); HEMOGLOBIN 8.9 g/dL (12.0-16.0); MEAN CORPUSCULAR HEMOGLOBIN 28.6 pg (28.0-32.0); MEAN CORPUSCULAR VOLUME 90.9 fL (81.0-99.0); PLATELET 188 x1000/uL (130-400); RED BLOOD CELL COUNT 3.11 mill/uL (4.2-5.4); RED CELL DISTRIBUTION WIDTH 18.1 % (11.6-14.6)
[2018-04-16] MEDS: BLOOD SUGAR DIAGNOSTIC STRIP TEST SCH ×5 (06:37→23:51)
[2018-04-16] MEDS: [UNRECOGNIZED DRUG - OTHER] PO SCH (09:00)
[2018-04-16] MEDS: [UNRECOGNIZED DRUG - OTHER] PO SCH ×2 (09:00→17:00)
[2018-04-16] MEDS ORDERED: NON FORMULARY PATIENT HOME MED PEG SCH ×2 (09:00)
[2018-04-16] MEDS: HYDROCORTISONE 20MG TABLET PO SCH ×2 (09:25→22:30)
[2018-04-16] MEDS: FUROSEMIDE 20MG TABLET PO SCH (09:25)
[2018-04-16] MEDS: SORBITOL 70% SOLN 30ML GT PRN (09:25)
[2018-04-16] MEDS: FERROUS SULFATE 325MG TABLET PO SCH ×3 (09:25→19:25)
[2018-04-16] MEDS: POTASSIUM CHLORIDE 20MEQ/PACKET GT SCH ×3 (09:25→19:25)
[2018-04-16] MEDS: PSYLLIUM SEED PACKET PO SCH ×3 (09:25→19:25)
[2018-04-16] MEDS: PANTOPRAZOLE SODIUM 40 MG/VIAL IV SCH ×2 (09:25→22:30)
[2018-04-16] MEDS: ACETAMINOPHEN 650MG/20.3ML UDC PO PRN (11:03)
[2018-04-16] MEDS: DOCUSATE SODIUM SUGAR FREE 100MG/10ML UDC NG SCH ×2 (13:37→19:25)
[2018-04-16] MEDS: INSULIN GLARGINE UD 100 UNITS/ML SYR SUBCUT SCH (22:34)
[2018-04-17] VITALS (13 sets, daily range): BP systolic 79–102; BP diastolic 36–60
[2018-04-17] MEDS: IPRATROPIUM/ALBUTEROL 0.5-3(2.5)MG/3ML NEB HHN SCH ×6 (04:21→23:58)
[2018-04-17] MEDS: SORBITOL 70% SOLN 30ML GT PRN (05:56)
[2018-04-17] MEDS: BLOOD SUGAR DIAGNOSTIC STRIP TEST SCH ×4 (05:57→23:55)
[2018-04-17] MEDS: SILDENAFIL CITRATE 20MG TABLET PO SCH ×3 (06:00→22:00)
[2018-04-17] MEDS: INSULIN LISPRO 100 UNITS/ML SUBCUT SCH ×4 (06:08→23:55)
[2018-04-17] MEDS: FERROUS SULFATE 325MG TABLET PO SCH ×3 (09:03→18:55)
[2018-04-17] MEDS: FUROSEMIDE 20MG TABLET PO SCH (09:03)
[2018-04-17] MEDS: PSYLLIUM SEED PACKET PO SCH ×3 (09:03→18:55)
[2018-04-17] MEDS: HYDROCORTISONE 20MG TABLET PO SCH ×2 (09:03→21:56)
[2018-04-17] MEDS: PANTOPRAZOLE SODIUM 40 MG/VIAL IV SCH ×2 (09:03→21:56)
[2018-04-17] MEDS: [UNRECOGNIZED DRUG - OTHER] PO SCH (09:04)
[2018-04-17] MEDS: [UNRECOGNIZED DRUG - OTHER] PO SCH ×2 (09:05→18:55)
[2018-04-17] MEDS: POTASSIUM CHLORIDE 20MEQ/PACKET GT SCH ×3 (10:17→18:55)
[2018-04-17] MEDS: DOCUSATE SODIUM SUGAR FREE 100MG/10ML UDC NG SCH ×2 (10:18→18:55)
[2018-04-17] MEDS: INSULIN GLARGINE UD 100 UNITS/ML SYR SUBCUT SCH (23:55)
[2018-04-18] VITALS (10 sets, daily range): BP systolic 89–119; BP diastolic 44–75
[2018-04-18] MEDS: IPRATROPIUM/ALBUTEROL 0.5-3(2.5)MG/3ML NEB HHN SCH ×5 (03:56→20:09)
[2018-04-18] MEDS: SILDENAFIL CITRATE 20MG TABLET PO SCH ×3 (05:47→21:04)
[2018-04-18] MEDS: BLOOD SUGAR DIAGNOSTIC STRIP TEST SCH ×4 (06:00→23:23)
[2018-04-18] MEDS: SORBITOL 70% SOLN 30ML GT PRN (06:30)
[2018-04-18] MEDS: INSULIN LISPRO 100 UNITS/ML SUBCUT SCH ×4 (06:30→23:23)
[2018-04-18] MEDS: FUROSEMIDE 20MG TABLET PO SCH (09:12)
[2018-04-18] MEDS: PSYLLIUM SEED PACKET PO SCH ×3 (09:12→17:51)
[2018-04-18] MEDS: POTASSIUM CHLORIDE 20MEQ/PACKET GT SCH ×3 (09:12→17:52)
[2018-04-18] MEDS: FERROUS SULFATE 325MG TABLET PO SCH ×3 (09:12→17:51)
[2018-04-18] MEDS: DOCUSATE SODIUM SUGAR FREE 100MG/10ML UDC NG SCH (09:12)
[2018-04-18] MEDS: PANTOPRAZOLE SODIUM 40 MG/VIAL IV SCH ×2 (09:13→21:04)
[2018-04-18] MEDS: HYDROCORTISONE 20MG TABLET PO SCH ×2 (09:13→21:05)
[2018-04-18] MEDS: [UNRECOGNIZED DRUG - OTHER] PO SCH (09:18)
[2018-04-18] MEDS: [UNRECOGNIZED DRUG - OTHER] PO SCH ×2 (09:18→17:52)
[2018-04-18 13:48] LABS: HEMATOCRIT 26.8 % (36.0-48.0); HEMOGLOBIN 8.9 g/dL (12.0-16.0); MEAN CORPUSCULAR HEMOGLOBIN 28.8 pg (28.0-32.0); MEAN CORPUSCULAR VOLUME 87.2 fL (81.0-99.0); PLATELET 196 x1000/uL (130-400); RED BLOOD CELL COUNT 3.08 mill/uL (4.2-5.4); RED CELL DISTRIBUTION WIDTH 17.7 % (11.6-14.6)
[2018-04-18] MEDS: ACETYLCYSTEINE 100MG/ML 10% VIAL 4ML INH SCH (16:30)
[2018-04-18] MEDS: INSULIN GLARGINE UD 100 UNITS/ML SYR SUBCUT SCH (23:23)
[2018-04-19] VITALS (14 sets, daily range): BP systolic 88–124; BP diastolic 33–69
[2018-04-19] MEDS: IPRATROPIUM/ALBUTEROL 0.5-3(2.5)MG/3ML NEB HHN SCH ×6 (00:16→20:44)
[2018-04-19] MEDS: SILDENAFIL CITRATE 20MG TABLET PO SCH ×3 (06:58→21:43)
[2018-04-19] MEDS: BLOOD SUGAR DIAGNOSTIC STRIP TEST SCH ×4 (06:59→23:07)
[2018-04-19] MEDS: INSULIN LISPRO 100 UNITS/ML SUBCUT SCH ×4 (06:59→23:07)
[2018-04-19] MEDS: POTASSIUM CHLORIDE 20MEQ/PACKET GT SCH ×3 (10:02→18:25)
[2018-04-19] MEDS: FUROSEMIDE 20MG TABLET PO SCH (10:02)
[2018-04-19] MEDS: FERROUS SULFATE 325MG TABLET PO SCH ×3 (10:02→18:20)
[2018-04-19] MEDS: HYDROCORTISONE 20MG TABLET PO SCH ×2 (10:02→21:43)
[2018-04-19] MEDS: PANTOPRAZOLE SODIUM 40 MG/VIAL IV SCH ×2 (10:02→21:43)
[2018-04-19] MEDS: [UNRECOGNIZED DRUG - OTHER] PO SCH ×2 (10:03→18:20)
[2018-04-19] MEDS: PSYLLIUM SEED PACKET PO SCH ×3 (10:03→18:20)
[2018-04-19] MEDS: [UNRECOGNIZED DRUG - OTHER] PO SCH (10:03)
[2018-04-19] MEDS: INSULIN GLARGINE UD 100 UNITS/ML SYR SUBCUT SCH (23:14)
[2018-04-20] VITALS (13 sets, daily range): BP systolic 97–138; BP diastolic 47–87
[2018-04-20] MEDS: IPRATROPIUM/ALBUTEROL 0.5-3(2.5)MG/3ML NEB HHN SCH ×6 (00:25→21:32)
[2018-04-20] MEDS: ACETYLCYSTEINE 100MG/ML 10% VIAL 4ML INH SCH ×2 (00:26→16:05)
[2018-04-20] MEDS: SILDENAFIL CITRATE 20MG TABLET PO SCH ×3 (05:39→21:01)
[2018-04-20] MEDS: BLOOD SUGAR DIAGNOSTIC STRIP TEST SCH ×3 (05:46→18:36)
[2018-04-20] MEDS: INSULIN LISPRO 100 UNITS/ML SUBCUT SCH ×3 (05:48→18:37)
[2018-04-20 08:34] LABS: BASOPHILS % 0.6 % (0.0-2.0); HEMATOCRIT. 27.6 % (36.0-48.0); LYMPHOCYTES % 11.9 % (20.0-50.0); MEAN CORPUSCULAR HEMOGLOBIN 28.5 pg (28.0-32.0); MEAN CORPUSCULAR VOLUME 87.4 fL (81.0-99.0); MEAN PLATELET VOLUME 10.3 fl (7.4-10.4); NEUTROPHILS % 76.5 % (40.0-76.0); PLATELET 206 x1000/uL (130-400); RED BLOOD CELL COUNT 3.16 mill/uL (4.2-5.4); RED CELL DISTRIBUTION WIDTH 17.6 % (11.6-14.6)
[2018-04-20 08:35] LABS: CHLORIDE 106 mEq/L (98-107)
[2018-04-20] MEDS: PSYLLIUM SEED PACKET PO SCH ×3 (09:35→18:36)
[2018-04-20] MEDS: HYDROCORTISONE 20MG TABLET PO SCH ×2 (09:36→20:57)
[2018-04-20] MEDS: FUROSEMIDE 20MG TABLET PO SCH (09:36)
[2018-04-20] MEDS: FERROUS SULFATE 325MG TABLET PO SCH ×3 (09:36→18:36)
[2018-04-20] MEDS: PANTOPRAZOLE SODIUM 40 MG/VIAL IV SCH ×2 (09:36→20:57)
[2018-04-20] MEDS: POTASSIUM CHLORIDE 20MEQ/PACKET GT SCH ×2 (09:36→18:36)
[2018-04-20] MEDS: [UNRECOGNIZED DRUG - OTHER] PO SCH (09:37)
[2018-04-20] MEDS: [UNRECOGNIZED DRUG - OTHER] PO SCH ×2 (09:37→18:36)
[2018-04-20] MEDS: INSULIN GLARGINE UD 100 UNITS/ML SYR SUBCUT SCH (21:01)
[2018-04-21] VITALS (12 sets, daily range): BP systolic 71–114; BP diastolic 40–61
[2018-04-21] MEDS: BLOOD SUGAR DIAGNOSTIC STRIP TEST SCH ×4 (00:06→17:14)
[2018-04-21] MEDS: INSULIN LISPRO 100 UNITS/ML SUBCUT SCH ×4 (00:11→17:15)
[2018-04-21] MEDS: IPRATROPIUM/ALBUTEROL 0.5-3(2.5)MG/3ML NEB HHN SCH ×6 (00:38→21:10)
[2018-04-21] MEDS: ACETYLCYSTEINE 100MG/ML 10% VIAL 4ML INH SCH ×3 (00:41→16:14)
[2018-04-21] MEDS: SILDENAFIL CITRATE 20MG TABLET PO SCH ×3 (05:11→22:00)
[2018-04-21] MEDS: PANTOPRAZOLE SODIUM 40 MG/VIAL IV SCH ×2 (10:19→21:59)
[2018-04-21] MEDS: FUROSEMIDE 20MG TABLET PO SCH (10:19)
[2018-04-21] MEDS: POTASSIUM CHLORIDE 20MEQ/PACKET GT SCH ×2 (10:19→17:15)
[2018-04-21] MEDS: FERROUS SULFATE 325MG TABLET PO SCH ×3 (10:19→17:15)
[2018-04-21] MEDS: HYDROCORTISONE 20MG TABLET PO SCH ×2 (10:19→21:59)
[2018-04-21] MEDS: PSYLLIUM SEED PACKET PO SCH ×3 (10:19→17:15)
[2018-04-21] MEDS: [UNRECOGNIZED DRUG - OTHER] PO SCH ×2 (10:21→16:28)
[2018-04-21] MEDS: [UNRECOGNIZED DRUG - OTHER] PO SCH (10:21)
[2018-04-21] MEDS: INSULIN GLARGINE UD 100 UNITS/ML SYR SUBCUT SCH (22:32)
[2018-04-22] VITALS (13 sets, daily range): BP systolic 78–118; BP diastolic 43–67
[2018-04-22] MEDS: BLOOD SUGAR DIAGNOSTIC STRIP TEST SCH ×4 (00:17→17:15)
[2018-04-22] MEDS: ACETYLCYSTEINE 100MG/ML 10% VIAL 4ML INH SCH ×3 (00:39→17:57)
[2018-04-22] MEDS: IPRATROPIUM/ALBUTEROL 0.5-3(2.5)MG/3ML NEB HHN SCH ×6 (00:39→21:06)
[2018-04-22] MEDS: INSULIN LISPRO 100 UNITS/ML SUBCUT SCH ×4 (06:02→17:17)
[2018-04-22 08:30] LABS: BASOPHILS % 0.6 % (0.0-2.0); EOSINOPHILS % 1.8 % (0.0-5.0); HEMATOCRIT. 27.2 % (36.0-48.0); HEMOGLOBIN. 9.1 g/dL (12.0-16.0); LYMPHOCYTES % 12.4 % (20.0-50.0); MEAN CORPUSCULAR HEMOGLOBIN 29.1 pg (28.0-32.0); MEAN CORPUSCULAR VOLUME 87.3 fL (81.0-99.0); MEAN PLATELET VOLUME 10.6 fl (7.4-10.4); NEUTROPHILS % 74.2 % (40.0-76.0); PLATELET 194 x1000/uL (130-400); RED BLOOD CELL COUNT 3.12 mill/uL (4.2-5.4); RED CELL DISTRIBUTION WIDTH 18.4 % (11.6-14.6)
[2018-04-22] MEDS: [UNRECOGNIZED DRUG - OTHER] PO SCH ×2 (09:00→17:00)
[2018-04-22 09:01] LABS: CHLORIDE 106 mEq/L (98-107)
[2018-04-22] MEDS: POTASSIUM CHLORIDE 20MEQ/PACKET GT SCH (09:32)
[2018-04-22] MEDS: HYDROCORTISONE 20MG TABLET PO SCH ×2 (09:32→21:17)
[2018-04-22] MEDS: PANTOPRAZOLE SODIUM 40 MG/VIAL IV SCH ×2 (09:32→21:17)
[2018-04-22] MEDS: FERROUS SULFATE 325MG TABLET PO SCH ×3 (09:33→17:15)
[2018-04-22] MEDS: PSYLLIUM SEED PACKET PO SCH ×3 (09:33→17:15)
[2018-04-22] MEDS: [UNRECOGNIZED DRUG - OTHER] PO SCH (09:35)
[2018-04-22] MEDS: NYSTATIN 100,000 UNITS/GM OINT 15GM TOP SCH (21:30)
[2018-04-23] VITALS (13 sets, daily range): BP systolic 99–139; BP diastolic 44–87
[2018-04-23] MEDS: INSULIN GLARGINE UD 100 UNITS/ML SYR SUBCUT SCH ×2 (00:28→22:10)
[2018-04-23] MEDS: INSULIN LISPRO 100 UNITS/ML SUBCUT SCH ×4 (00:29→17:40)
[2018-04-23] MEDS: IPRATROPIUM/ALBUTEROL 0.5-3(2.5)MG/3ML NEB HHN SCH ×6 (02:12→21:07)
[2018-04-23] MEDS: ACETYLCYSTEINE 100MG/ML 10% VIAL 4ML INH SCH ×2 (02:12→11:22)
[2018-04-23] MEDS: BLOOD SUGAR DIAGNOSTIC STRIP TEST SCH ×4 (06:00→17:08)
[2018-04-23] MEDS: FERROUS SULFATE 325MG TABLET PO SCH ×3 (08:57→17:39)
[2018-04-23] MEDS: PSYLLIUM SEED PACKET PO SCH ×3 (08:58→17:39)
[2018-04-23] MEDS: PANTOPRAZOLE SODIUM 40 MG/VIAL IV SCH ×2 (08:58→21:55)
[2018-04-23] MEDS: [UNRECOGNIZED DRUG - OTHER] PO SCH ×2 (08:59→17:41)
[2018-04-23] MEDS: HYDROCORTISONE 20MG TABLET PO SCH ×2 (08:59→21:56)
[2018-04-23] MEDS: [UNRECOGNIZED DRUG - OTHER] PO SCH (08:59)
[2018-04-23] MEDS: POTASSIUM CHLORIDE 20MEQ/PACKET GT SCH (08:59)
[2018-04-23] MEDS: NYSTATIN 100,000 UNITS/GM OINT 15GM TOP SCH ×2 (09:00→21:56)
[2018-04-24] VITALS (14 sets, daily range): BP systolic 112–164; BP diastolic 39–69
[2018-04-24] MEDS: IPRATROPIUM/ALBUTEROL 0.5-3(2.5)MG/3ML NEB HHN SCH ×6 (00:43→23:57)
[2018-04-24] MEDS: BLOOD SUGAR DIAGNOSTIC STRIP TEST SCH ×4 (00:55→17:31)
[2018-04-24] MEDS: INSULIN LISPRO 100 UNITS/ML SUBCUT SCH ×4 (00:58→17:42)
[2018-04-24] MEDS: PANTOPRAZOLE SODIUM 40 MG/VIAL IV SCH ×2 (08:07→21:26)
[2018-04-24] MEDS: PSYLLIUM SEED PACKET PO SCH ×3 (08:07→17:36)
[2018-04-24] MEDS: FERROUS SULFATE 325MG TABLET PO SCH ×3 (08:07→17:36)
[2018-04-24] MEDS: [UNRECOGNIZED DRUG - OTHER] PO SCH (08:07)
[2018-04-24] MEDS: POTASSIUM CHLORIDE 20MEQ/PACKET GT SCH (08:07)
[2018-04-24] MEDS: HYDROCORTISONE 20MG TABLET PO SCH ×2 (08:08→21:27)
[2018-04-24] MEDS: NYSTATIN 100,000 UNITS/GM OINT 15GM TOP SCH ×2 (08:09→21:27)
[2018-04-24] MEDS: [UNRECOGNIZED DRUG - OTHER] PO SCH ×2 (08:09→17:40)
[2018-04-24] MEDS: ACETYLCYSTEINE 100MG/ML 10% VIAL 4ML INH SCH (09:00)
[2018-04-24] MEDS: INSULIN GLARGINE UD 100 UNITS/ML SYR SUBCUT SCH (22:06)
[2018-04-25] VITALS (12 sets, daily range): BP systolic 96–147; BP diastolic 52–73
[2018-04-25] MEDS: INSULIN LISPRO 100 UNITS/ML SUBCUT SCH ×4 (01:56→17:11)
[2018-04-25] MEDS: IPRATROPIUM/ALBUTEROL 0.5-3(2.5)MG/3ML NEB HHN SCH ×5 (04:24→21:18)
[2018-04-25] MEDS: BLOOD SUGAR DIAGNOSTIC STRIP TEST SCH ×4 (05:38→17:04)
[2018-04-25] MEDS: [UNRECOGNIZED DRUG - OTHER] PO SCH ×2 (08:13→17:03)
[2018-04-25] MEDS: HYDROCORTISONE 20MG TABLET PO SCH ×2 (08:13→21:45)
[2018-04-25] MEDS: FERROUS SULFATE 325MG TABLET PO SCH ×3 (08:13→17:10)
[2018-04-25] MEDS: [UNRECOGNIZED DRUG - OTHER] PO SCH (08:14)
[2018-04-25] MEDS: POTASSIUM CHLORIDE 20MEQ/PACKET GT SCH (08:15)
[2018-04-25] MEDS: PSYLLIUM SEED PACKET PO SCH ×3 (08:15→17:04)
[2018-04-25] MEDS: PANTOPRAZOLE SODIUM 40 MG/VIAL IV SCH ×2 (08:15→21:45)
[2018-04-25] MEDS: NYSTATIN 100,000 UNITS/GM OINT 15GM TOP SCH ×2 (08:16→21:00)
[2018-04-25] MEDS ORDERED: SORBITOL 70% SOLN 30ML PO NR ×2 (16:00→20:00)
[2018-04-25] MEDS: INSULIN GLARGINE UD 100 UNITS/ML SYR SUBCUT SCH (23:14)
[2018-04-26] VITALS (11 sets, daily range): BP systolic 88–139; BP diastolic 45–79
[2018-04-26] MEDS: IPRATROPIUM/ALBUTEROL 0.5-3(2.5)MG/3ML NEB HHN SCH ×5 (00:44→20:23)
[2018-04-26] MEDS: INSULIN LISPRO 100 UNITS/ML SUBCUT SCH ×4 (01:02→18:11)
[2018-04-26] MEDS ORDERED: SORBITOL 70% SOLN 30ML PO SCH (03:00)
[2018-04-26] MEDS: BLOOD SUGAR DIAGNOSTIC STRIP TEST SCH ×5 (06:00→23:51)
[2018-04-26] MEDS: FERROUS SULFATE 325MG TABLET PO SCH ×3 (07:27→18:11)
[2018-04-26] MEDS ORDERED: SORBITOL 70% SOLN 30ML PO NR (08:00)
[2018-04-26] MEDS: PANTOPRAZOLE SODIUM 40 MG/VIAL IV SCH ×2 (08:04→21:34)
[2018-04-26] MEDS: [UNRECOGNIZED DRUG - OTHER] PO SCH ×2 (08:59→16:13)
[2018-04-26] MEDS: HYDROCORTISONE 20MG TABLET PO SCH ×2 (08:59→21:34)
[2018-04-26] MEDS: POTASSIUM CHLORIDE 20MEQ/PACKET GT SCH (08:59)
[2018-04-26] MEDS: PSYLLIUM SEED PACKET PO SCH ×3 (08:59→16:13)
[2018-04-26] MEDS: [UNRECOGNIZED DRUG - OTHER] PO SCH (09:00)
[2018-04-26] MEDS: NYSTATIN 100,000 UNITS/GM OINT 15GM TOP SCH ×2 (09:00→21:00)
[2018-04-26 10:01] LABS: HEMATOCRIT. 31.3 % (36.0-48.0); MEAN CORPUSCULAR HEMOGLOBIN 28.4 pg (28.0-32.0); MEAN PLATELET VOLUME 10.1 fl (7.4-10.4); PLATELET 205 x1000/uL (130-400); RED BLOOD CELL COUNT 3.52 mill/uL (4.2-5.4); RED CELL DISTRIBUTION WIDTH 17.6 % (11.6-14.6)
[2018-04-26 10:06] LABS: PROTHROMBIN TIME 10.2 sec (9.1-11.1)
[2018-04-26 10:29] LABS: CHLORIDE 117 mEq/L (98-107)
[2018-04-26] MEDS ORDERED: MIDAZOLAM HCL 5 MG/5 ML VIAL ONE (16:02)
[2018-04-26] MEDS ORDERED: FENTANYL CITRATE/PF 50MCG/ML 2ML VIAL ONE (16:02)
[2018-04-26] MEDS ORDERED: MIDAZOLAM HCL 2 MG/2 ML VIAL IV PRN (16:15)
[2018-04-26 21:24] LABS: PLATELET ESTIMATE NORMAL
[2018-04-27] VITALS (12 sets, daily range): BP systolic 84–136; BP diastolic 50–94
[2018-04-27] MEDS: INSULIN LISPRO 100 UNITS/ML SUBCUT SCH ×4 (00:15→18:31)
[2018-04-27] MEDS: INSULIN GLARGINE UD 100 UNITS/ML SYR SUBCUT SCH ×2 (00:16→21:20)
[2018-04-27] MEDS: IPRATROPIUM/ALBUTEROL 0.5-3(2.5)MG/3ML NEB HHN SCH ×6 (00:41→20:27)
[2018-04-27] MEDS: BLOOD SUGAR DIAGNOSTIC STRIP TEST SCH ×3 (06:00→18:23)
[2018-04-27 06:57] LABS: CHLORIDE 118 mEq/L (98-107)
[2018-04-27 07:23] LABS: BASOPHILS % 0.9 % (0.0-2.0); EOSINOPHILS % 1.8 % (0.0-5.0); HEMATOCRIT. 29.8 % (36.0-48.0); HEMOGLOBIN. 9.5 g/dL (12.0-16.0); LYMPHOCYTES % 7.3 % (20.0-50.0); MEAN CORPUSCULAR HEMOGLOBIN 28.5 pg (28.0-32.0); MEAN CORPUSCULAR VOLUME 89.5 fL (81.0-99.0); MEAN PLATELET VOLUME 9.9 fl (7.4-10.4); MONOCYTES % 10.2 % (2.0-8.0); NEUTROPHILS % 79.8 % (40.0-76.0); PLATELET 185 x1000/uL (130-400); RED BLOOD CELL COUNT 3.33 mill/uL (4.2-5.4); RED CELL DISTRIBUTION WIDTH 17.3 % (11.6-14.6)
[2018-04-27] MEDS: HYDROCORTISONE 20MG TABLET PO SCH ×2 (10:05→21:05)
[2018-04-27] MEDS: FERROUS SULFATE 325MG TABLET PO SCH ×3 (10:05→18:22)
[2018-04-27] MEDS: POTASSIUM CHLORIDE 20MEQ/PACKET GT SCH (10:06)
[2018-04-27] MEDS: PSYLLIUM SEED PACKET PO SCH ×3 (10:06→18:22)
[2018-04-27] MEDS: PANTOPRAZOLE SODIUM 40 MG/VIAL IV SCH ×2 (10:06→21:05)
[2018-04-27] MEDS: NYSTATIN 100,000 UNITS/GM OINT 15GM TOP SCH ×2 (10:09→21:06)
[2018-04-27] MEDS: [UNRECOGNIZED DRUG - OTHER] PO SCH ×2 (10:10→18:24)
[2018-04-27] MEDS: [UNRECOGNIZED DRUG - OTHER] PO SCH (10:11)
[2018-04-27] MEDS: ACETAMINOPHEN 650MG/20.3ML UDC GT PRN (12:19)
[2018-04-27] MEDS: DEXTROSE 5% WATER 1,000 ML IV SCH (14:24)
[2018-04-28] VITALS (16 sets, daily range): BP systolic 62–106; BP diastolic 26–70
[2018-04-28] MEDS: BLOOD SUGAR DIAGNOSTIC STRIP TEST SCH ×4 (00:45→18:44)
[2018-04-28] MEDS: INSULIN LISPRO 100 UNITS/ML SUBCUT SCH ×4 (00:51→18:44)
[2018-04-28] MEDS: IPRATROPIUM/ALBUTEROL 0.5-3(2.5)MG/3ML NEB HHN SCH ×6 (00:53→20:48)
[2018-04-28] MEDS: DEXTROSE 5% WATER 1,000 ML IV SCH (05:08)
[2018-04-28 06:56] LABS: CHLORIDE 113 mEq/L (98-107)
[2018-04-28 07:25] LABS: BASOPHILS % 0.6 % (0.0-2.0); EOSINOPHILS % 2.1 % (0.0-5.0); HEMATOCRIT. 25.3 % (36.0-48.0); HEMOGLOBIN. 8.2 g/dL (12.0-16.0); LYMPHOCYTES % 10.2 % (20.0-50.0); MEAN CORPUSCULAR HEMOGLOBIN 28.6 pg (28.0-32.0); MEAN CORPUSCULAR VOLUME 87.7 fL (81.0-99.0); MEAN PLATELET VOLUME 10.1 fl (7.4-10.4); MONOCYTES % 9.7 % (2.0-8.0); NEUTROPHILS % 77.4 % (40.0-76.0); PLATELET 162 x1000/uL (130-400); RED BLOOD CELL COUNT 2.88 mill/uL (4.2-5.4); RED CELL DISTRIBUTION WIDTH 17.4 % (11.6-14.6)
[2018-04-28] MEDS: FERROUS SULFATE 325MG TABLET PO SCH ×3 (09:17→18:44)
[2018-04-28] MEDS: POTASSIUM CHLORIDE 20MEQ/PACKET GT SCH (09:17)
[2018-04-28] MEDS: PSYLLIUM SEED PACKET PO SCH ×3 (09:17→18:44)
[2018-04-28] MEDS: [UNRECOGNIZED DRUG - OTHER] PO SCH (09:17)
[2018-04-28] MEDS: NYSTATIN 100,000 UNITS/GM OINT 15GM TOP SCH ×2 (09:17→21:25)
[2018-04-28] MEDS: PANTOPRAZOLE SODIUM 40 MG/VIAL IV SCH ×2 (09:17→21:24)
[2018-04-28] MEDS: [UNRECOGNIZED DRUG - OTHER] PO SCH ×2 (09:18→18:45)
[2018-04-28] MEDS: HYDROCORTISONE 20MG TABLET PEG SCH (13:21)
[2018-04-28] MEDS ORDERED: SODIUM CHLORIDE 0.9% 10ML VIAL ONE (15:42)
[2018-04-28] MEDS: INSULIN GLARGINE UD 100 UNITS/ML SYR SUBCUT SCH (21:30)
[2018-04-29] VITALS (12 sets, daily range): BP systolic 84–126; BP diastolic 47–71
[2018-04-29] MEDS: IPRATROPIUM/ALBUTEROL 0.5-3(2.5)MG/3ML NEB HHN SCH ×4 (00:08→12:36)
[2018-04-29] MEDS: INSULIN LISPRO 100 UNITS/ML SUBCUT SCH ×4 (05:50→17:54)
[2018-04-29] MEDS: BLOOD SUGAR DIAGNOSTIC STRIP TEST SCH ×4 (05:50→17:33)
[2018-04-29 07:53] LABS: BASOPHILS % 1.1 % (0.0-2.0); CHLORIDE 109 mEq/L (98-107); EOSINOPHILS % 3.5 % (0.0-5.0); HEMATOCRIT. 27.5 % (36.0-48.0); HEMOGLOBIN. 8.8 g/dL (12.0-16.0); LYMPHOCYTES % 16.4 % (20.0-50.0); MEAN CORPUSCULAR HEMOGLOBIN 28.3 pg (28.0-32.0); MEAN PLATELET VOLUME 9.9 fl (7.4-10.4); MONOCYTES % 8.9 % (2.0-8.0); NEUTROPHILS % 70.1 % (40.0-76.0); PLATELET 162 x1000/uL (130-400); RED BLOOD CELL COUNT 3.12 mill/uL (4.2-5.4); RED CELL DISTRIBUTION WIDTH 16.8 % (11.6-14.6)
[2018-04-29] MEDS: FERROUS SULFATE 325MG TABLET PO SCH ×3 (12:55→17:32)
[2018-04-29] MEDS: PANTOPRAZOLE SODIUM 40 MG/VIAL IV SCH ×2 (12:58→21:40)
[2018-04-29] MEDS: HYDROCORTISONE 20MG TABLET PEG SCH ×2 (12:58→17:32)
[2018-04-29] MEDS: PSYLLIUM SEED PACKET PO SCH ×3 (12:58→17:32)
[2018-04-29] MEDS: [UNRECOGNIZED DRUG - OTHER] PO SCH (12:59)
[2018-04-29] MEDS: [UNRECOGNIZED DRUG - OTHER] PO SCH ×2 (12:59→17:33)
[2018-04-29] MEDS: NYSTATIN 100,000 UNITS/GM OINT 15GM TOP SCH ×2 (12:59→21:43)
[2018-04-29] MEDS: POTASSIUM CHLORIDE 20MEQ/PACKET GT SCH (17:32)
[2018-04-29] MEDS: INSULIN GLARGINE UD 100 UNITS/ML SYR SUBCUT SCH (21:51)
[2018-04-30] VITALS (19 sets, daily range): BP systolic 84–123; BP diastolic 41–74
[2018-04-30] MEDS ORDERED: INSULIN LISPRO 100 UNITS/ML SUBCUT SCH
[2018-04-30] MEDS ORDERED: BLOOD SUGAR DIAGNOSTIC STRIP TEST SCH
[2018-04-30] MEDS: IPRATROPIUM/ALBUTEROL 0.5-3(2.5)MG/3ML NEB HHN SCH ×6 (00:20→20:26)
[2018-04-30] MEDS: PANTOPRAZOLE SODIUM 40 MG/VIAL IV SCH ×2 (09:22→23:24)
[2018-04-30] MEDS: FERROUS SULFATE 325MG TABLET PO SCH ×3 (09:22→17:24)
[2018-04-30] MEDS: PSYLLIUM SEED PACKET PO SCH ×3 (09:22→17:23)
[2018-04-30] MEDS: POTASSIUM CHLORIDE 20MEQ/PACKET GT SCH ×2 (09:23→17:23)
[2018-04-30] MEDS: [UNRECOGNIZED DRUG - OTHER] PO SCH ×2 (09:30→17:25)
[2018-04-30] MEDS: HYDROCORTISONE 20MG TABLET PEG SCH ×2 (09:30→17:24)
[2018-04-30] MEDS: [UNRECOGNIZED DRUG - OTHER] PO SCH (09:31)
[2018-04-30] MEDS: NYSTATIN 100,000 UNITS/GM OINT 15GM TOP SCH ×2 (09:32→23:24)
[2018-04-30] MEDS ORDERED: POTASSIUM CHLORIDE 20MEQ/PACKET PO SCH (12:00)
[2018-04-30] MEDS: INSULIN GLARGINE UD 100 UNITS/ML SYR SUBCUT SCH (22:39)
[2018-05-01] VITALS (11 sets, daily range): BP systolic 89–146; BP diastolic 23–69
[2018-05-01] MEDS: IPRATROPIUM/ALBUTEROL 0.5-3(2.5)MG/3ML NEB HHN SCH ×5 (00:26→20:31)
[2018-05-01 06:34] LABS: CHLORIDE 112 mEq/L (98-107)
[2018-05-01] MEDS: HYDROCORTISONE 20MG TABLET PEG SCH ×2 (09:13→17:46)
[2018-05-01] MEDS: PANTOPRAZOLE SODIUM 40 MG/VIAL IV SCH (09:13)
[2018-05-01] MEDS: FERROUS SULFATE 325MG TABLET PO SCH ×3 (09:13→17:46)
[2018-05-01] MEDS: POTASSIUM CHLORIDE 20MEQ/PACKET GT SCH (09:13)
[2018-05-01] MEDS: NYSTATIN 100,000 UNITS/GM OINT 15GM TOP SCH ×2 (09:14→21:41)
[2018-05-01] MEDS: [UNRECOGNIZED DRUG - OTHER] PO SCH (09:14)
[2018-05-01] MEDS: PSYLLIUM SEED PACKET PO SCH ×3 (09:14→17:46)
[2018-05-01] MEDS: [UNRECOGNIZED DRUG - OTHER] PO SCH ×2 (09:19→17:47)
[2018-05-01] MEDS: INSULIN GLARGINE UD 100 UNITS/ML SYR SUBCUT SCH (21:42)
[2018-05-02] VITALS (13 sets, daily range): BP systolic 86–117; BP diastolic 41–71
[2018-05-02] MEDS: IPRATROPIUM/ALBUTEROL 0.5-3(2.5)MG/3ML NEB HHN SCH ×6 (00:48→19:58)
[2018-05-02] MEDS: ACETAMINOPHEN 650MG/20.3ML UDC GT PRN (01:07)
[2018-05-02 06:35] LABS: BASOPHILS % 0.8 % (0.0-2.0); HEMATOCRIT. 26.7 % (36.0-48.0); HEMOGLOBIN. 8.7 g/dL (12.0-16.0); MEAN CORPUSCULAR HEMOGLOBIN 28.6 pg (28.0-32.0); MEAN CORPUSCULAR VOLUME 88.1 fL (81.0-99.0); MEAN PLATELET VOLUME 10.2 fl (7.4-10.4); MONOCYTES % 11.9 % (2.0-8.0); NEUTROPHILS % 67.3 % (40.0-76.0); PLATELET 143 x1000/uL (130-400); RED BLOOD CELL COUNT 3.03 mill/uL (4.2-5.4); RED CELL DISTRIBUTION WIDTH 17.1 % (11.6-14.6)
[2018-05-02 06:56] LABS: CHLORIDE 110 mEq/L (98-107)
[2018-05-02] MEDS: [UNRECOGNIZED DRUG - OTHER] PO SCH (08:14)
[2018-05-02] MEDS: PSYLLIUM SEED PACKET PO SCH ×3 (08:15→16:38)
[2018-05-02] MEDS: NYSTATIN 100,000 UNITS/GM OINT 15GM TOP SCH ×2 (08:15→21:57)
[2018-05-02] MEDS: PANTOPRAZOLE SODIUM 40 MG/VIAL IV SCH (08:15)
[2018-05-02] MEDS: HYDROCORTISONE 20MG TABLET PEG SCH ×2 (08:15→18:10)
[2018-05-02] MEDS: [UNRECOGNIZED DRUG - OTHER] PO SCH ×2 (08:15→16:39)
[2018-05-02] MEDS: FERROUS SULFATE 325MG TABLET PO SCH ×3 (08:15→18:11)
[2018-05-02] MEDS: INSULIN GLARGINE UD 100 UNITS/ML SYR SUBCUT SCH (21:59)
[2018-05-03] VITALS (13 sets, daily range): BP systolic 81–125; BP diastolic 37–80
[2018-05-03] MEDS: IPRATROPIUM/ALBUTEROL 0.5-3(2.5)MG/3ML NEB HHN SCH ×6 (00:17→21:44)
[2018-05-03] MEDS: [UNRECOGNIZED DRUG - OTHER] PO SCH (09:23)
[2018-05-03] MEDS: NYSTATIN 100,000 UNITS/GM OINT 15GM TOP SCH ×2 (09:23→22:17)
[2018-05-03] MEDS: PSYLLIUM SEED PACKET PO SCH ×3 (09:24→18:44)
[2018-05-03] MEDS: FERROUS SULFATE 325MG TABLET PO SCH ×3 (09:24→18:43)
[2018-05-03] MEDS: HYDROCORTISONE 20MG TABLET PEG SCH ×2 (09:24→18:44)
[2018-05-03] MEDS: PANTOPRAZOLE SODIUM 40 MG/VIAL IV SCH (09:24)
[2018-05-03] MEDS: [UNRECOGNIZED DRUG - OTHER] PO SCH ×2 (09:24→18:43)
[2018-05-03] MEDS: INSULIN GLARGINE UD 100 UNITS/ML SYR SUBCUT SCH (22:17)
[2018-05-04] VITALS (14 sets, daily range): BP systolic 86–129; BP diastolic 5–76
[2018-05-04] MEDS: IPRATROPIUM/ALBUTEROL 0.5-3(2.5)MG/3ML NEB HHN SCH ×5 (01:48→16:00)
[2018-05-04 08:51] LABS: CHLORIDE 110 mEq/L (98-107)
[2018-05-04] MEDS: FERROUS SULFATE 325MG TABLET PO SCH ×3 (09:16→16:50)
[2018-05-04] MEDS: HYDROCORTISONE 20MG TABLET PEG SCH ×2 (09:16→16:50)
[2018-05-04] MEDS: PSYLLIUM SEED PACKET PO SCH ×3 (09:17→16:50)
[2018-05-04] MEDS: NYSTATIN 100,000 UNITS/GM OINT 15GM TOP SCH ×2 (09:17→21:00)
[2018-05-04] MEDS: PANTOPRAZOLE SODIUM 40 MG/VIAL IV SCH (09:17)
[2018-05-04] MEDS: [UNRECOGNIZED DRUG - OTHER] PO SCH ×2 (09:17→16:50)
[2018-05-04] MEDS: [UNRECOGNIZED DRUG - OTHER] PO SCH (09:17)
[2018-05-04 15:22] LABS: HEMATOCRIT. 31.4 % (36.0-48.0); MEAN CORPUSCULAR HEMOGLOBIN 28.1 pg (28.0-32.0); MEAN CORPUSCULAR VOLUME 88.2 fL (81.0-99.0); MEAN PLATELET VOLUME 10.9 fl (7.4-10.4); PLATELET 172 x1000/uL (130-400); RED BLOOD CELL COUNT 3.56 mill/uL (4.2-5.4); RED CELL DISTRIBUTION WIDTH 17.2 % (11.6-14.6)
[2018-05-04] MEDS: ACETAMINOPHEN 650MG/20.3ML UDC GT PRN (16:49)
[2018-05-04 18:10] LABS: NUCLEATED RED BLOOD CELLS 1 /100 WBC; PLATELET ESTIMATE NORMAL
[2018-05-04] MEDS: INSULIN GLARGINE UD 100 UNITS/ML SYR SUBCUT SCH (22:00)
== END 2018-05-04 21:23 | DRG 207 ==
LOC: ER 15:20 → EDBEDREQSVC 22:20 → 5EST 22:21 → EDBEDREQ 22:23 → EDBEDREQTM 22:23 → ENRESERV 03-28 09:51
PROVIDERS: ADMIT Internal Medicine; ATTEND Internal Medicine
PROC: 5A1955Z Respiratory Ventilation, Greater than 96 Consecutive Hours (ICD-10-PCS; principal; 2018-03-27)
PROC: 0DJ08ZZ Inspection of Upper Intestinal Tract, Via Natural or Artificial Opening Endoscopic (ICD-10-PCS; 2018-03-30)
PROC: B54MZZA Ultrasonography of Right Upper Extremity Veins, Guidance (ICD-10-PCS; 2018-04-01)
PROC: 05HY33Z Insertion of Infusion Device into Upper Vein, Percutaneous Approach (ICD-10-PCS; 2018-04-01)
PROC: 30233N1 Transfusion of Nonautologous Red Blood Cells into Peripheral Vein, Percutaneous Approach (ICD-10-PCS; 2018-04-04)
PROC: 0DBH8ZZ Excision of Cecum, Via Natural or Artificial Opening Endoscopic (ICD-10-PCS; 2018-04-26)
DX: J96.20 Acute and chronic respiratory failure, unspecified whether with hypoxia or hypercapnia (principal); I50.23 Acute on chronic systolic (congestive) heart failure; I21.4 Non-ST elevation (NSTEMI) myocardial infarction; K29.71 Gastritis, unspecified, with bleeding; K57.31 Diverticulosis of large intestine without perforation or abscess with bleeding; Z99.11 Dependence on respirator [ventilator] status; E87.0 Hyperosmolality and hypernatremia; E27.40 Unspecified adrenocortical insufficiency; I13.0 Hypertensive heart and chronic kidney disease with heart failure and stage 1 through stage 4 chronic kidney disease, or unspecified chronic kidney disease; I48.92 Unspecified atrial flutter; N39.0 Urinary tract infection, site not specified; I27.20 Pulmonary hypertension, unspecified; I48.91 Unspecified atrial fibrillation; B37.2 Candidiasis of skin and nail; B96.20 Unspecified Escherichia coli [E. coli] as the cause of diseases classified elsewhere; D12.0 Benign neoplasm of cecum; D50.9 Iron deficiency anemia, unspecified; D69.6 Thrombocytopenia, unspecified; E11.22 Type 2 diabetes mellitus with diabetic chronic kidney disease; E78.00 Pure hypercholesterolemia, unspecified; E78.5 Hyperlipidemia, unspecified; I25.10 Atherosclerotic heart disease of native coronary artery without angina pectoris; I25.5 Ischemic cardiomyopathy; J44.9 Chronic obstructive pulmonary disease, unspecified; K21.9 Gastro-esophageal reflux disease without esophagitis; B95.2 Enterococcus as the cause of diseases classified elsewhere; Z16.21 Resistance to vancomycin; K59.00 Constipation, unspecified; N18.9 Chronic kidney disease, unspecified; Z79.01 Long term (current) use of anticoagulants; Z88.0 Allergy status to penicillin; Z93.0 Tracheostomy status; Z93.1 Gastrostomy status; Z95.0 Presence of cardiac pacemaker; Z95.5 Presence of coronary angioplasty implant and graft; Z88.2 Allergy status to sulfonamides; Z88.8 Allergy status to other drugs, medicaments and biological substances; Z88.6 Allergy status to analgesic agent; Z91.041 Radiographic dye allergy status
CPT/HCPCS: 36415; 36569; 36600; 71045; 76937; 80048; 82270; 82375; 82550; 82553; 82728; 82805; 82962; 83540; 83550; 83735; 83880; 84100; 84132; 84443; 84484; 85027; 86850; 86900; 86920; 87077; 87186; 87804; 88305; 93005; 93306; 94002; 94003; 94640; 96374; 97163; 99285; A4216; A6261; C1725; C9113; J1815; J1940; J2250; J2270; J3010; J3490; J7040; J7050; J7060; J7070; J7608; J7620; P9016